=== PATIENT | male | born 1975 | race Caucasian/White ===

== ENCOUNTER 2017-02-17 06:53 | Day surgery (SDC) | payer BC ==
[~2017-02-17 06:53] MED LIST: Bupivacaine 0.5% 10 ML SDV ONE; Lactated Ringers 1,000 ML IV SCH; Lidocaine 1% 30 ML SDV ONE; Sodium Chloride 0.9% 10 ML Syringe FLUSH PRN
[2017-02-17] MEDS ORDERED: Bupivacaine 0.5% 10 ML SDV INJECT ONE ×5 (06:54→09:31)
[2017-02-17] MEDS ORDERED: Propofol 200 MG/20 ML SDV IV ONE (06:54)
[2017-02-17] MEDS ORDERED: fentaNYL 100 MCG/2 ML SDV IV ONE (06:54)
[2017-02-17] MEDS ORDERED: Lidocaine 1% 30 ML SDV INJECT ONE ×5 (06:54→09:31)
[2017-02-17] MEDS ORDERED: Midazolam 1 MG/ML 2 ML SDV IV ONE (06:54)
[2017-02-17] MEDS ORDERED: Ondansetron 4 MG/2 ML SDV IV ONE (06:54)
[2017-02-17] MEDS ORDERED: ceFAZolin 1 GM in Premix Bag 1 BAG IV ONE ×2 (07:30→08:00)
--- NOTE | 2017-02-17 11:35 | PCM.OPNOTE ---
- General Post-Op/Procedure Note Date of Surgery/Procedure: 02/17/17 Operative Procedure(s): right foot 1st MTPJ arthrotomy with debridement of chondral defect and subchondral drilling Pre Op Diagnosis: right foot condral defect 1st MTPJ Post-Op Diagnosis: capo Anesthesia Technique: Local, MAC Primary Surgeon: Lala Pendleton Anesthesia Provider: Jeffery Zhou EBL in mLs: 5 Complications: none Condition: Good Free Text/Narrative:: Intake & Output 02/16/17 02/17/17 02/17/17 22:59 06:59 14:59 Intake Total 100 Balance 100 Pt tolerated procedure well and was transported to pacu with vascular status intact to right foot. TT 47 mins. Well padded dressing with cam boot applied.
--- NOTE | 2017-02-18 13:18 | OR ---
DATE: 02/17/2017 PREOPERATIVE DIAGNOSIS: Right foot 1st metatarsophalangeal joint pain/osteochondral defect. POSTOPERATIVE DIAGNOSIS: Right foot 1st metatarsophalangeal joint pain/osteochondral defect. PROCEDURE PERFORMED: Right 1st metatarsophalangeal joint arthrotomy with exploration and debridement of chondral defect with subchondral drilling. ANESTHESIA: Local MAC with preoperative local block of 10 mL of 1:1 mixture of 1% lidocaine plain and 0.5% Marcaine plain. TOURNIQUET TIME: 47 minutes of pneumatic ankle tourniquet. ESTIMATED BLOOD LOSS: Minimal. SPECIMEN: None. COMPLICATIONS: None. INDICATIONS: Gaurav is a 41-year-old male who presents with right great toe joint pain. I have seen him in the past for this pain and tried an injection into the area. He only had a few weeks relief with that injection. The pain is continuing to get worse. At first, he could not remember any injury to the area, but now remembers that he did jam that toe into a bed frame a couple years ago and the pain has just been significantly worsening since then. He has also tried different shoes and activity modifications with no relief. MRI of the right foot reveals osteochondral defect of the 1st MTPJ with subchondral increased signal on the T2 images and it does look like there is a cartilage flap present, the remaining cartilage appears intact, but it is hard to tell. They also noted on the MRI possible partial plantar plate tear. The patient voiced good understanding of proposed procedure and possible complications, elects to have surgery at this time. I did discuss with him thoroughly that even after the surgery, he may still end up with a fusion in the future. He understands. DESCRIPTION OF PROCEDURE: The patient was taken to the operating room, lying in the supine position. After adequate anesthesia induction as described above, the right foot was prepped and draped in the usual sterile fashion. Pneumatic ankle tourniquet was inflated to 225 mmHg. Attention was then directed to the dorsal aspect of the 1st metatarsophalangeal joint where an approximately 5 cm linear incision was made overlying the joint. Sharp and blunt dissections were performed down to the level of the 1st metatarsophalangeal joint being careful to retract all neurovascular bundles. A linear capsulotomy was made at the joint and the 1st metatarsal phalangeal joint was exposed. The joint was examined and there was noted to be a cartilage defect at the central aspect of the 1st metatarsal head. This flap was approximately 3 mm x 3 mm and was attached at the medial aspect. This cartilage flap was excised, ensuring that there was no loose cartilage at the edges of the flap, and the remaining cartilage was all intact and healthy in appearance. A 0.062 inch K-wire was then used to drill this area down to subchondral bone. The remainder of the joint appeared healthy with no signs of defects present. The plantar plate was also explored and noted to be healthy in appearance, at the very medial aspect, there was a small tear in the area and I did suture that with 3-0 Vicryl. There were no other tears noted and everything looked healthy. The area was irrigated with copious amounts of sterile saline. Deep closure was completed with 3-0 Vicryl, and skin closure was completed with 4-0 nylon. The area was then dressed with Xeroform to the incision site, fluffs, Webril, and a well-padded compression dressing. He was placed in a CAM boot. He tolerated anesthesia and procedure well and was transported to recovery with vital signs stable and vascular status intact to the right foot as noted by immediate hyperemia upon deflation of the ankle tourniquet. The patient was then discharged home once he met hospital discharge requirements. [facility] /[id number]
== END 2017-02-17 10:35 | disposition home or self-care (01) ==
LOC: DL.SDS 06:53
PROVIDERS: ATTEND Podiatrist
DX: M21.961 Unspecified acquired deformity of right lower leg (principal); Z79.899 Other long term (current) drug therapy; Z91.09 Other allergy status, other than to drugs and biological substances; Z87.891 Personal history of nicotine dependence
CPT/HCPCS: 28022; J0690; J7120; J2250; J2405; J2704; J3010